=== PATIENT | female | born 1960 | race Two or more races ===

== ENCOUNTER 2019-09-29 00:20 | Emergency (ER) | payer OTHER ==
[~2019-09-29] VITALS: Ht 162.6 cm; Wt 63.6 kg
[2019-09-29 03:42] VITALS: BP 127/68
== END 2019-09-29 04:00 | disposition home or self-care (01) ==
LOC: EMS 00:20
DX: S00.03XA Contusion of scalp, initial encounter (principal); F10.129 Alcohol abuse with intoxication, unspecified; W01.0XXA Fall on same level from slipping, tripping and stumbling without subsequent striking against object, initial encounter; Y93.89 Activity, other specified; Y92.89 Other specified places as the place of occurrence of the external cause; Y99.8 Other external cause status
CPT/HCPCS: 70450